=== PATIENT | female | born 1980 | race Caucasian/White ===

== ENCOUNTER 2023-11-01 14:33 | Emergency (ER) | payer SELFPAY ==
[~2023-11-01] VITALS: Ht 154.9 cm; Wt 62.6 kg
[2023-11-01 14:44] VITALS: BP 120/81; PULSE 93; RESP 18; TEMP 98.7; O2SAT 98
== END 2023-11-01 15:31 | disposition home or self-care (01) ==
LOC: MED 14:33
DX: R23.2 Flushing (principal); R00.2 Palpitations; Z88.8 Allergy status to other drugs, medicaments and biological substances; Z79.899 Other long term (current) drug therapy
CPT/HCPCS: 93005; 99283

== ENCOUNTER 2024-05-05 11:31 | Emergency (ER) | payer MEDICAID, OTHER ==
[~2024-05-05] VITALS: Ht 160 cm; Wt 64.4 kg
[2024-05-05 12:01] VITALS: BP 124/68; PULSE 75; RESP 16; TEMP 97.5; O2SAT 100
[2024-05-05] MEDS: ACETAMINOPHEN EXTRA STRENGTH 500 MG TAB PO ONE (13:42)
[2024-05-05] MEDS: KETOROLAC 30 MG/ML VIAL IM ONE (13:43)
[2024-05-05 14:05] VITALS: BP 128/59; PULSE 73; RESP 14; TEMP 98.5; O2SAT 100
== END 2024-05-05 14:05 | disposition home or self-care (01) ==
LOC: MED 11:31
DX: H92.01 Otalgia, right ear (principal); R51.9 Headache, unspecified; Z88.1 Allergy status to other antibiotic agents
CPT/HCPCS: 96372; 99283; J1885